=== PATIENT | male | born 1950 | race Hispanic/Latino ===

== ENCOUNTER 2020-11-01 06:26 | Day surgery (SDC) | payer OTHER ==
[2020-10-29 12:40] VITALS: BP 147/78
[2020-10-29 12:58] LABS: BASOPHILS % (AUTO) 0.8 % (0.0-5.0); HEMATOCRIT 45.7 % (42-54); LYMPHOCYTES % (AUTO) 22.5 % (21.0-51.0); MEAN CORPUSCULAR HEMOGLOBIN 28.3 pg (27.0-33.0); MEAN CORPUSCULAR HGB CONC 31.7 g/dL (32.0-36.0); MEAN CORPUSCULAR VOLUME 89.1 fL (79-99); MONOCYTES % (AUTO) 9.4 % (3.0-13.0); PLATELET COUNT (AUTO) 165 K/uL (130-400); RED BLOOD CELL COUNT(AUTO) 5.13 MIL/uL (4.50-6.20); RED CELL DISTRIBUTION WIDTH 14.4 % (11.0-15.5); WHITE BLOOD COUNT (AUTO) 9.3 K/uL (4.8-10.8)
[2020-10-29 13:11] LABS: CREATININE 0.8 mg/dL (0.5-1.5); POTASSIUM 4.1 mmol/L (3.5-5.1)
[~2020-11-01] VITALS: Ht 167.6 cm; Wt 93.3 kg
[2020-11-01] VITALS (17 sets, daily range): BP systolic 110–129; BP diastolic 54–79
[~2020-11-01 06:26] MED LIST: AMLO2.5T4 PO; PANT40TA54 PO; TAMS-1 PO
[2020-11-01] MEDS: CEFAZOLIN SODIUM 1 GM VIAL IVP SCH ×2 (07:06→07:50)
[2020-11-01] MEDS: LACTATED RINGERS 1000ML 1,000 ML IV SCH ×2 (07:06→08:36)
[2020-11-01] MEDS ORDERED: SUCCINYLCHOLINE CHLORIDE 20 MG/ML 10 ML VIAL ONE (07:15)
[2020-11-01] MEDS ORDERED: LIDOCAINE PF 100MG/5ML (2%) SYRINGE 5ML ONE (07:15)
[2020-11-01] MEDS ORDERED: PROPOFOL 10 MG/ML 20ML VIAL IV ONE (07:19)
[2020-11-01] MEDS ORDERED: ROCURONIUM 10MG/1ML SYR 10 MG/ML ML ONE (07:19)
[2020-11-01] MEDS ORDERED: FENTANYL CITRATE PF 50 MCG/1 ML 2ML VIAL ONE (07:19)
[2020-11-01] MEDS ORDERED: 0.9%NACL 10ML VIAL ONE (07:57)
[2020-11-01] MEDS ORDERED: PHENYLEPHRINE HCL 10 MG/ML 1ML VIAL IV ONE (07:57)
[2020-11-01] MEDS ORDERED: GLYCOPYRROLATE 1 MG/5 ML SYRINGE ONE (08:05)
[2020-11-01] MEDS ORDERED: KETOROLAC 30MG VIAL (30MG/ML) ONE (08:34)
== END 2020-11-01 10:25 | disposition home or self-care (01) ==
LOC: DAH 06:26 → EDSTATUS 11:00
PROVIDERS: ATTEND Orthopaedic Surgery
DX: M23.321 Other meniscus derangements, posterior horn of medial meniscus, right knee (principal); Z20.822 Contact with and (suspected) exposure to COVID-19; I10 Essential (primary) hypertension; K21.9 Gastro-esophageal reflux disease without esophagitis; Z79.899 Other long term (current) drug therapy
CPT/HCPCS: 29881; 36415; 80048; 85025; 87635; 93005; A4215; A4221; A4222; A4223; A4606; A4649 ×5; A4663; A5120; A6223; C1713; C9803; J0690; J1885; J2001; J2370; J2704; J3010; J3490; J7120; J0330